=== PATIENT | female | born 1965 | race Caucasian/White ===

== ENCOUNTER → 2018-04-09 | Outpatient (CLI) | payer BC ==
[~2018-04-09] MED LIST: ESTRIOL100 GM MC; FIRST-PROGESTER25 MG VG; FLEXERIL PO; HYDROCODONE-AP1 EAC6 PO; IBUPROFEN 800800 M1 PO; NORCO 5-325 TA1 EAC1 PO; PREMPHASE 0.621 EAC1 PO; VYVANSE50 MG PO
== END ==
LOC: M.CT 08:09
DX: N20.0 Calculus of kidney (principal); N83.201 Unspecified ovarian cyst, right side; R53.82 Chronic fatigue, unspecified; R35.0 Frequency of micturition

== ENCOUNTER → 2018-07-11 | Outpatient (CLI) | payer BC ==
--- NOTE | 2018-07-19 12:34 | EEG ---
[address] [address] EEG STUDY REPORT Name: NICHOLAS PHILIPPE Room: [facility].#: [id number] Admission: 07/11/18 Attend Phys: Derrick Herron MD Discharge: Date of : 69 Report #: [id number] THIS REPORT FOR: //name// CC: Derrick Herron DATE OF SERVICE: 07/13/2018 This patient is being evaluated for dizziness. EEG was done by placing the electrodes by standard 10-20 system of electrode placement. Both referential and sequential montages were used for recording. Background activity in this patient's EEG is about 10 Hz and 40 microvolt. The patient went to sleep that is associated with bilaterally symmetrical sleep spindle and vertex sharp waves. Photic stimulation is unremarkable. Throughout the record, no active epileptiform activity was noticed. IMPRESSION: This patient's EEG is unremarkable. Thank you very much for this referral. <ELECTRONICALLY SIGNED> By: Steven Constantino MD 07/19/18 1234 [id number] Constantino MD /nt
== END ==
LOC: M.CRD 14:52 → M.MRI 16:30
DX: K90.0 Celiac disease (principal); E53.8 Deficiency of other specified B group vitamins; R42 Dizziness and giddiness

== ENCOUNTER → 2020-07-06 | Outpatient (CLI) | payer BC | LOC: M.RAD 11:37 | PROVIDERS: ATTEND Internal Medicine | DX: G50.0 Trigeminal neuralgia (principal); M25.531 Pain in right wrist ==